=== PATIENT | male | born 1980 | race Caucasian/White ===

== ENCOUNTER 2017-03-29 02:06 | Emergency (ER) | payer BC, OTHER ==
[~2017-03-29] VITALS: Ht 170.2 cm; Wt 68.0 kg
[2017-03-29] MEDS ORDERED: LEVETIRACETAM 1000 MG (PMX) 100 ML IVPB STA (02:10)
[2017-03-29] MEDS ORDERED: SOD CHLORIDE 0.9% 1,000 ML IV STA (02:10)
[2017-03-29 02:20] VITALS: Ht 170.2 cm; Wt 68.0 kg
[2017-03-29 03:00] VITALS: TEMP 98.7
[2017-03-29 03:24] LABS: BASOPHILS % 0.2 % (0.0-2.0); EOSINOPHILS % 0.2 % (0.0-7.0); HEMATOCRIT 45.5 % (42.0-52.0); HEMOGLOBIN 15.7 g/dl (14.0-18.0); LYMPHOCYTES # 2.7 10^3/ul (0.8-2.9); LYMPHOCYTES % 21.2 % (15.0-51.0); MEAN CORPUSCULAR HEMOGLOBIN 31.2 pg (29.0-33.0); MEAN CORPUSCULAR HGB CONC 34.5 g/dl (32.0-37.0); MEAN CORPUSCULAR VOLUME 90.3 fl (82.0-101.0); MEAN PLATELET VOLUME 12.1 fl (7.4-10.4); MONOCYTE # 0.7 10^3/ul (0.3-0.9); MONOCYTES % 5.5 % (0.0-11.0); NEUTROPHIL # 9.3 10^3/ul (1.6-7.5); NEUTROPHILS % 72.3 % (39.0-77.0); PLATELET COUNT 223 10^3/UL (140-415); RED BLOOD COUNT 5.04 10^6/ul (4.70-6.10); RED CELL DISTRIBUTION WIDTH 13.2 % (11.5-14.5); WHITE BLOOD COUNT 12.9 10^3/ul (4.8-10.8)
--- NOTE | 2017-03-29 03:44 | RADRPT ---
PROCEDURE: CT BRAIN WITHOUT CONTRAST CLINICAL INDICATION: 36-year-old male with seizure and subsequent trauma. TECHNIQUE: The study was performed utilizing a [employer] VCT 64-slice CT scanner. Direct axia l sections were obtained from the foramen magnum to the vertex without the use of intravenous contra st material. Sagittal and coronal reformations were obtained. One or more the following dose reduct ion techniques were utilized: automated exposure control, adjustment of the mA and/or kV according t o patient's size and/or the use of iterative reconstruction technique. DICOM images are available. T he images were viewed on a PACS workstation. CTD/vol = 43.3 mGy; Total Exam DLP = 720.2 mGy-cm. COMPARISON: None. FINDINGS: The ventricles have a normal size, shape and position. There is no evidence for mass effect or midl ine shift. There are no intracranial areas of abnormal attenuation. There is no evidence for acute intra or extra-axial blood. The bony calvarium is intact. The partially visualized paranasal sinuse s and mastoid air cells are without significant abnormal soft tissue. IMPRESSION: Unremarkable noncontrast CT scan of the brain. .Gerald Koch MD, MD Date Time Electronically viewed and signed by .Gerald Koch MD, on 03/29/2017 03:43 .Jona/
[2017-03-29 04:16] LABS: ANION GAP 22 (8-16); BLOOD UREA NITROGEN 17 mg/dl (7-20); CALCIUM 9.3 mg/dl (8.4-10.2); CARBON DIOXIDE 23 mmol/L (21-31); CHLORIDE 102 mmol/L (97-110); CREATININE 1.26 mg/dl (0.61-1.24); GLUCOSE 117 mg/dl (70-220); POTASSIUM 3.7 mmol/L (3.5-5.1); SODIUM 143 mmol/L (135-144)
[2017-03-29 04:27] LABS: VALPROATE < 10 ug/ml (50-100)
[2017-03-29] MEDS ORDERED: LEVE-5 PO (04:48)
[2017-03-29] MEDS ORDERED: NEOM1PAC TP (04:49)
--- NOTE | 2017-03-29 05:13 | ERD ---
ER Documentation Chief Complaint Chief Complaint seizure at work, noncompliant with meds. -oral trauma, abrasion to head HPI 36-year-old male presents with a seizure at work where he works at a [employer]. He did fall and scraped the top of his head. Seizure lasted approximately 1 minute according to coworkers. He was feeling well all day and had no seizure aura. He did not have much of a post ictal. His last seizure which was 6-7 years ago he was in the hospital for several days because he was postictal for a long time. He has not had a seizure since then. He does not take Depakote which prescribed to him years ago because he thought it caused seizures. He denies any current weakness or headache. ROS All systems reviewed and are negative except as per history of present illness. Medications Home Meds Active Scripts Neomycin Savage/Bacitrac Zn/Poly (Triple Antibiotic Ointment) 1 Each Oint.pack, 1 EACH TP TID, #1 Prov:ALBERTO CARBONE DO 03/29/17 Levetiracetam* (Keppra*) 500 Mg Tablet, 500 MG PO BID for 30 Days, TAB Prov:ALBERTO CARBONE DO 03/29/17 Allergies Allergies: Coded Allergies: No Known Allergy (Unverified , 03/29/17) PMhx/Soc Medical and Surgical Hx: pt denies Surgical Hx History of Surgery: No Anesthesia Reaction: No Hx Neurological Disorder: No Hx Respiratory Disorders: No Hx Cardiac Disorders: No Hx Psychiatric Problems: No Hx Miscellaneous Medical Probl: Yes (epilepsy) Hx Alcohol Use: Yes (occasionaly) Hx Substance Use: No Hx Tobacco Use: No Smoking Status: Never smoker Physical Exam Vitals Vital Signs Date Time Temp Pulse Resp B/P Pulse Ox O2 Delivery O2 Flow Rate FiO2 03/29/17 03:00 98.7 104 17 110/73 96 Room Air 03/29/17 02:20 98.7 104 17 110/73 93 Physical Exam Const: [] No distress Head: Abrasions along top of the head. Scant blood. No active bleeding. Eyes: Normal Conjunctiva EOMI, PERRLA ENT: Normal External Ears, Nose and Mouth. Moist mucous memories of mouth, no tongue injury. Neck: Full range of motion..~ No meningismus. Resp: Clear to auscultation bilaterally Cardio: Regular rate and rhythm, no murmurs Abd: Soft, non tender, non distended. Normal bowel sounds Skin: No petechiae or rashes Back: No midline or flank tenderness, no deformity Ext: No cyanosis, or edema distal pulses intact all 4 extremities Neur: Awake and alert and oriented 3, no focal deficits, cranial 2 through 12 intact, no cerebellar deficits, normal gait Psych: Normal Mood and Affect Result Diagram: 03/29/17 0250 03/29/17 0250 Results 24 hrs Laboratory Tests Test 03/29/17 02:50 White Blood Count 12.910^3/ul Red Blood Count 5.0410^6/ul Hemoglobin 15.7g/dl Hematocrit 45.5% Mean Corpuscular Volume 90.3fl Mean Corpuscular Hemoglobin 31.2pg Mean Corpuscular Hemoglobin Concent 34.5g/dl Red Cell Distribution Width 13.2% Platelet Count 02584^3/UL Mean Platelet Volume 12.1fl Neutrophils % 72.3% Lymphocytes % 21.2% Monocytes % 5.5% Eosinophils % 0.2% Basophils % 0.2% Nucleated Red Blood Cells % 0.0/100WBC Neutrophils # 9.310^3/ul Lymphocytes # 2.710^3/ul Monocytes # 0.710^3/ul Eosinophils # 0.010^3/ul Basophils # 0.010^3/ul Nucleated Red Blood Cells # 0.010^3/ul Sodium Level 143mmol/L Potassium Level 3.7mmol/L Chloride Level 102mmol/L Carbon Dioxide Level 23mmol/L Anion Gap 22 Blood Urea Nitrogen 17mg/dl Creatinine 1.26mg/dl Glucose Level 117mg/dl Calcium Level 9.3mg/dl Valproic Acid (Depakene) Level < 10ug/ml Current Medications Medications (Trade) Dose Ordered Sig/Miguel Route PRN Reason Start Time Stop Time Status Last Admin Dose Admin Sodium Chloride 1,000 ml @ 1,000 mls/hr Q1H STAT IV 03/29/17 02:10 03/29/17 03:09 DC 03/29/17 02:10 Levetiracetam (Keppra 1,000mg/ 100ml (Pmx)) 100 ml @ 400 mls/hr ONCE STAT IVPB 03/29/17 02:10 03/29/17 02:24 DC 03/29/17 03:26 Procedures/MDM Recurrent seizure and 36-year-old male. Was given a gram of IV fluids and a loading dose of IV Keppra. Patient does have abrasions on his head but declined a tetanus shot. Is feeling better and has no neurological deficits in the emergency room. No signs of intracranial hemorrhage. Currently asymptomatic. Robotic ointment was placed on his head abrasion. Discharging with Neosporin as well as Keppra twice daily. He says that he will contact his neurologist. Assuming primary care follow-up and strict return precautions to the ER. site monitor interpretation: Normal sinus rhythm without arrhythmia CT brain interpretation: I see no acute process. No hemorrhage, no mass-effect , no midline shift, no skull fracture. Departure Diagnosis: Primary Impression: Head injury Additional Impressions: Seizure disorder Renal insufficiency Condition: Stable Patient Instructions: Seizure, Recurrent [Adult] Additional Instructions: Call your primary care doctor TOMORROW for an appointment during the next 2-3 days.See the doctor sooner or return here if your condition worsens before your appointment time. ALBERTO CARBONE DO Mar 29, 2017 05:07
[2017-03-29 05:30] VITALS: BP 111/82; PULSE 85; RESP 18
== END 2017-03-29 05:30 | disposition home or self-care (01) ==
LOC: E/R 02:06
DX: S00.91XA Abrasion of unspecified part of head, initial encounter (principal); G40.909 Epilepsy, unspecified, not intractable, without status epilepticus; N28.9 Disorder of kidney and ureter, unspecified; W19.XXXA Unspecified fall, initial encounter; Y92.513 Shop (commercial) as the place of occurrence of the external cause
CPT/HCPCS: 36415; 70450; 80048; 80164; 85025; 96374; 99285; J1953; J7030